=== PATIENT | male | born 1950 | race Caucasian/White ===

== ENCOUNTER 2017-06-06 11:41 | Day surgery (SDC) | payer MEDICARE, BC ==
[~2017-06-06] VITALS: Ht 180.3 cm; Wt 132.6 kg
[~2017-06-06 11:41] MED LIST: ASCO10004 PO; ASPI-496 PO; CHOL5000 PO; DILT240T3 PO; FENO145T32 PO; FISH1CAP PO; INSU100V8 SQ; LISI40TA PO; METF500T4 PO; METO-95 PO; MULT-230 PO; MULT-516 PO; TAMS-11 PO; TRIA1CAP3 PO; UBID1CAP52 PO; VITA150T PO
[2017-06-06] MEDS ORDERED: LACTATED RINGERS 1,000 ML IV SCH (12:37)
[2017-06-06] MEDS ORDERED: MIDAZOLAM 1 MG/ML, 2ML ONE (13:04)
[2017-06-06] MEDS ORDERED: FENTANYL PF 250 MCG/5ML ONE (13:04)
[2017-06-06 13:11] VITALS: BP 145/83
[2017-06-06] MEDS ORDERED: BUPIVACAINE/PF 0.25% ONE (13:58)
[2017-06-06] MEDS ORDERED: BUPIVACAINE/PF 0.5% ONE (13:58)
[2017-06-06] MEDS ORDERED: MIDAZOLAM 1 MG/ML, 2ML IV PRN (14:00)
[2017-06-06] MEDS ORDERED: OXYcodone 5 MG/5 ML ORAL.SOL UDC PO PRN (14:00)
[2017-06-06] MEDS ORDERED: morphine SULFATE 10 MG/ML, 1ML IV PRN (14:00)
[2017-06-06] MEDS ORDERED: FENTANYL PF 100 MCG/2ML IV PRN (14:00)
[2017-06-06] MEDS ORDERED: LABETALOL 5MG/ML, 20ML IV PRN (14:00)
[2017-06-06] MEDS ORDERED: hydrALAzine 20 MG/ML, 1ML IV PRN (14:00)
[2017-06-06] MEDS ORDERED: PROMETHAZINE 12.5 MG SUPP PR PRN (14:00)
[2017-06-06] MEDS ORDERED: ACETAMINOPHEN 325 MG TABLET PO PRN (14:00)
[2017-06-06] MEDS ORDERED: MEPERIDINE/PF 25MG/0.5ML IVPush PRN (14:00)
[2017-06-06] MEDS ORDERED: ONDANSETRON 2MG/ML, 2ML IVPush PRN (14:00)
[2017-06-06] MEDS ORDERED: ALBUTEROL SULFATE 2.5 MG/3 ML NPPB PRN (14:00)
[2017-06-06] MEDS ORDERED: DEXAMETHASONE 4 MG/ML, 1ML ONE (14:28)
[2017-06-06] MEDS ORDERED: ROCURONIUM 10 MG/ML,10ML ONE (14:28)
[2017-06-06] MEDS ORDERED: ALBUTEROL SULFATE 200 PUFFS/8.5 GR INH ONE (14:28)
[2017-06-06] MEDS ORDERED: SUCCINYLCHOLINE 20 MG/ML, 10ML ONE (15:23)
[2017-06-06] MEDS ORDERED: PROPOFOL 10 MG/ML, 20ML ONE (15:23)
[2017-06-06] MEDS ORDERED: VASOPRESSIN 20 UNIT/ML, 1ML ONE (15:23)
[2017-06-06] MEDS ORDERED: ONDANSETRON 2MG/ML, 2ML ONE (15:23)
[2017-06-06] MEDS ORDERED: NEOSPORIN OINT, 15GM ONE (15:25)
[2017-06-06] MEDS ORDERED: OXYcodone 5 MG/5 ML ORAL.SOL UDC ONE (16:31)
[2017-06-06] MEDS ORDERED: ACETAMINOPHEN 650 MG/20.3 ML UDC ONE (16:31)
== END 2017-06-06 18:00 ==
LOC: OUT 11:41
PROVIDERS: ATTEND Student in an Organized Health Care Education/Training Program
DX: N43.3 Hydrocele, unspecified (principal); E11.9 Type 2 diabetes mellitus without complications; I10 Essential (primary) hypertension; E78.00 Pure hypercholesterolemia, unspecified; E78.5 Hyperlipidemia, unspecified
CPT/HCPCS: 55041; 82962; 88302; J0330; J1100; J2250; J2405; J2704; J3010; J3490; J7120